=== PATIENT | female | born 1955 | race Caucasian/White ===

== ENCOUNTER 2018-04-01 21:09 | Emergency (ER) | payer OTHER, MEDICAID, SELFPAY ==
[2018-04-01 21:19] VITALS: BP 135/84; PULSE 68; RESP 18; TEMP 36.6; O2SAT 98; BMI 22.2
--- NOTE | 2018-04-01 21:21 | DI.CT.S_ITS ---
PROCEDURE: CT HEAD/BRAIN WO CON INDICATIONS: amnesia, no trauma TECHNIQUE: Noncontrast 4.5 mm thick angled axial sections acquired from the foramen magnum to the vertex, with coronal and sagittal reformats. For radiation dose reduction, the following was used: automated exposure control, adjustment of mA and/or kV according to patient size. COMPARISON: None. FINDINGS: Image quality: Excellent. CSF spaces: Basal cisterns are patent. No extra-axial fluid collections. Ventricles are normal in size and shape. Brain: No midline shift. No intracranial masses or hemorrhage. Diaz-white matter interface is normal. Skull and face: Calvarium and visualized facial bones are intact, without suspicious lesions. Sinuses: Visualized sinuses and mastoids are clear except at the left sphenoid sinus and posterior margin of the left ethmoid air cells where moderate mucosal thickening appears present. IMPRESSION: No trauma found. No acute disease identified. Moderate mucosal thickening is present within the posterior aspect of the left ethmoid air cells and the adjacent left sphenoid sinus. No comparison is available for review to establish chronicity of this finding. By appearance it is most likely chronic. Dictated by: Tom Israel M.D. on 04/01/2018 at 21:56 Approved by: Tom Israel M.D. on 04/01/2018 at 21:58
[2018-04-01 21:32] LABS: Urine Amphetamines Negative (Negative); Urine Barbiturates Negative (Negative); Urine Benzodiazepines Negative (Negative); Urine Cocaine Negative (Negative); Urine MDMA Negative (Negative); Urine Methadone Negative (Negative); Urine Methamphetamines Negative (Negative); Urine Morphine/Opi cutoff 2000 Negative (Negative); Urine Oxycodone Negative (Negative); Urine Phencyclidine Negative (Negative); Urine Tetrahydrocannabinol Negative (Negative); Urine Tricyclic Antidepressant Negative (Negative)
[2018-04-01] MEDS: SODIUM CHLORIDE 0.9% 1,000 ML 1000 ML IV (21:36)
--- NOTE | 2018-04-01 21:45 | ED.NEUROSD ---
HPI - Neuro Symptoms/Deficit General Chief Complaint: Neuro Symptoms/Deficit Stated Complaint: Amnesia Time Seen by Provider: 04/01/18 21:21 Source: patient and EMS Mode of arrival: EMS Limitations: altered mental status History of Present Illness HPI Narrative: Patient is a 62-year-old female who presents with amnesia and repetitive questioning. She was on [place] went to [facility]. She spent in unknown amount of time in the sauna. Her friend found her she was confused. No sign of trauma. She vaguely remembers [place]. EMS reports having the same conversation with her multiple times. No focal deficits she is speaking clearly. She is unsure exactly what happened but she is aware of where she is. I have spoken with her son who states that she has been on a ketogenic diet for the last number of months he is unsure if this is playing a role into it. The patient states that she has temporal lobe epilepsy which she does not take any medication for. She states that she is very vivid memories when she has seizures. She has not had 1 for [place]. On Anticoagulants: No Related Data Home Medications Medication Instructions Recorded Confirmed Koff[place]ien 04/01/18 Allergies Allergy/AdvReac Type Severity Reaction Status Date / Time Sulfa (Sulfonamide Allergy Mild Verified 04/01/18 21:43 Antibiotics) Review of Systems Review of Systems GENERAL: Denies chills, fatigue, malaise, fever, sweats, travel HEENT: Denies sinus pain, ear pain, sore throat, difficulty swallowing, neck pain RESPIRATORY: Denies dyspnea, cough, wheezing, hemoptysis, sputum. CARDIOVASCULAR: Denies chest pain, palpitations, orthopnea, edema GASTROINTESTINAL: Denies nausea, vomiting, abdominal pain, diarrhea, constipation, melena. : Denies dysuria, frequency, incontinence, hematuria, urinary retention, flank pain. MUSCULOSKELETAL: Denies weakness, joint pain, or bony pain SKIN: No rash, no erythema, no pruritus NEUROLOGIC: See HPI PSYCHIATRIC: No concerning psychosocial issues. 12 point review of systems is negative except for those stated above and HPI PFSH Medical History Temporal lobe seizure (Acute) Social History Smoking Status: Never smoker alcohol intake: never substance use type: does not use Exam Initial Vital Signs Initial Vital Signs: Vital Signs Temperature 97.9 F 04/01/18 21:19 Pulse Rate 68 04/01/18 21:19 Respiratory Rate 18 04/01/18 21:19 Blood Pressure 135/84 04/01/18 21:19 Pulse Oximetry 98 04/01/18 21:19 GENERAL: Well-appearing, well-nourished and in no acute distress. Sober positive questioning and words HEENT: Head atraumatic,EOMI, pupils reactive, face symmetric CARDIOVASCULAR: Regular rate and rhythm without murmurs, rubs or gallops. RESPIRATORY: Breath sounds equal bilaterally, no wheezes rales or rhonchi. ABDOMEN: Soft, nontender. Normoactive bowel sounds all 4 quadrants. No guarding or rebound. EXTREMITIES: Normal range of motion, no clubbing or edema. Neurovascularly intact NEUROLOGICAL: Alert and oriented x4.Normal gait and speech. Cranial nerves II through XII grossly intact. Good [id number], good [id number], strength equal bilaterally, no dysarthria or aphasia, sensation in tact to soft touch bilaterally, no visual changes, no facial droop SKIN: Warm, dry, no laceration, no petechiae, no rashes or lesions. Scores NIH Stroke Scale Level of Conciousness: Alert, keenly responsive Ask month/age: Answers both questions correctly. Open/close eyes, close hand: Performs both tasks correctly Best gaze horizontal: Normal Visual gomez: No visual loss Facial palsy: Normal symetrical movement Left arm drift: No drift for full 10 sec Right arm drift: No drift for full 10 sec Left leg drift: No drift for full 10 sec Right leg drift: No drift for full 10 sec Limb ataxia: Absent Sensory on face/arms/legs: Normal, no sensory loss Best language: No aphasia, normal Dysarthria: Normal Extinction or inattention: No abnormality Total NIH Stroke scale score: 0 Course Orders Ordered: Discontinued Medications Sodium Chloride (Normal Saline 0.9%) 1,000 mls @ 1,000 mls/hr IV CONT PHU Last Infusion: 04/02/18 00:26 Dose: 1,000 mls/hr Admin: 04/01/18 21:36 Dose: 1,000 mls/hr Dextrose (Dextrose 5% Water) 1,000 mls @ 150 mls/hr IV CONT PHU Last Admin: 04/02/18 00:28 Dose: Vital Signs - 8 hr 04/01/18 23:02 04/01/18 23:03 04/02/18 00:17 Temperature 98.4 F Pulse Rate 86 84 Respiratory Rate 17 18 Blood Pressure [Left Arm] 120/46 L 127/57 L Pulse Oximetry 100 99 04/02/18 05:27 Temperature Pulse Rate 72 Respiratory Rate 18 Blood Pressure [Left Arm] 112/60 Pulse Oximetry 98 MDM - Neuro Symptoms/Deficit Lab Data Attestation: I reviewed the patient's lab results. Result diagrams: 04/01/18 21:30 04/01/18 21:30 Lab Results 04/01/18 04/01/18 04/01/18 Range/Units 20:40 21:20 21:20 WBC (4.5-11.0) X10^3/uL RBC (4.0-5.2) X10^6/uL Hgb (12.0-16.0) g/dL Hct (36-46) % MCV (80-100) fL MCH (26-34) PG MCHC (30-36) % RDW (11.6-14.8) % Plt Count (150-400) X10^3/uL Neut % (Auto) (50-75) % Lymph % (Auto) (25-40) % [place] % (Auto) (3-14) % Eos % (Auto) (2-4) % Baso % (Auto) (0-2) % Neut # (Auto) (4312-8217) /uL PT (10.1-12.7) SECONDS INR (0.9-1.3) APTT (26.4-36.2) SECONDS Sodium (137-145) mmol/L Potassium (3.4-5.1) mmol/L Chloride (98-107) mmol/L Carbon Dioxide (22-32) mmol/L BUN (7-17) mg/dL Creatinine (0.52-1.04) mg/dL Estimated GFR (>60) mL/min BUN/Creatinine Ratio (6-22) Glucose (80-110) mg/dL Calcium (8.4-10.2) mg/dL Total Bilirubin (0.2-1.3) mg/dL AST (14-36) IU/L ALT (9-52) IU/L Alkaline Phosphatase (38-126) U/L Total Protein (6.3-8.2) g/dL Albumin (3.5-5.0) g/dL Globulin (1.7-4.1) g/dL Albumin/Globulin Ratio (1.0-2.8) Prolactin (3.0-18.6) ng/mL Urine RBC 0-1/hpf (0-5/HPF) Urine WBC None seen (0-5/HPF) Ur Squamous Epith Cells None seen Urine Bacteria None seen (None) Ur Culture Indicated? Cult not indicated Micro UA Comment Not Reportable Salicylates (<20) mg/dL Urine Opiates Screen Cancelled Negative Ur Oxycodone Screen Cancelled Negative Urine Methadone Screen Cancelled Negative Acetaminophen (10-30) ug/mL Ur Barbiturates Screen Cancelled Negative U Tricyclic Antidepress Cancelled Negative Ur Phencyclidine Scrn Cancelled Negative Ur Amphetamines Screen Cancelled Negative U Methamphetamines Scrn Cancelled Negative Ur MDMA Scrn (Ecstasy) Cancelled Negative U Benzodiazepines Scrn Cancelled Negative Urine Cocaine Screen Cancelled Negative U Marijuana (THC) Screen Cancelled Negative Ethyl Alcohol mg/dL Ketones (<0.27) mmol/L 04/01/18 04/01/18 04/01/18 Range/Units 21:23 21:30 21:30 WBC 7.0 (4.5-11.0) X10^3/uL RBC 4.44 (4.0-5.2) X10^6/uL Hgb 14.3 (12.0-16.0) g/dL Hct 41.7 (36-46) % MCV 94.1 (80-100) fL MCH 32.2 (26-34) PG MCHC 34.2 (30-36) % RDW 13.1 (11.6-14.8) % Plt Count 240 (150-400) X10^3/uL Neut % (Auto) 70.6 (50-75) % Lymph % (Auto) 19.5 L (25-40) % [place] % (Auto) 8.2 (3-14) % Eos % (Auto) 1.0 L (2-4) % Baso % (Auto) 0.7 (0-2) % Neut # (Auto) 4900 (3652-0465) /uL PT 10.3 (10.1-12.7) SECONDS INR 0.9 (0.9-1.3) APTT 29 (26.4-36.2) SECONDS Sodium (137-145) mmol/L Potassium (3.4-5.1) mmol/L Chloride (98-107) mmol/L Carbon Dioxide (22-32) mmol/L BUN (7-17) mg/dL Creatinine (0.52-1.04) mg/dL Estimated GFR (>60) mL/min BUN/Creatinine Ratio (6-22) Glucose (80-110) mg/dL Calcium (8.4-10.2) mg/dL Total Bilirubin (0.2-1.3) mg/dL AST (14-36) IU/L ALT (9-52) IU/L Alkaline Phosphatase (38-126) U/L Total Protein (6.3-8.2) g/dL Albumin (3.5-5.0) g/dL Globulin (1.7-4.1) g/dL Albumin/Globulin Ratio (1.0-2.8) Prolactin 32.3 H (3.0-18.6) ng/mL Urine RBC (0-5/HPF) Urine WBC (0-5/HPF) Ur Squamous Epith Cells Urine Bacteria (None) Ur Culture Indicated? Micro UA Comment Salicylates (<20) mg/dL Urine Opiates Screen Ur Oxycodone Screen Urine Methadone Screen Acetaminophen (10-30) ug/mL Ur Barbiturates Screen U Tricyclic Antidepress Ur Phencyclidine Scrn Ur Amphetamines Screen U Methamphetamines Scrn Ur MDMA Scrn (Ecstasy) U Benzodiazepines Scrn Urine Cocaine Screen U Marijuana (THC) Screen Ethyl Alcohol mg/dL Ketones 0.90 H (<0.27) mmol/L 04/01/18 Range/Units 21:30 WBC (4.5-11.0) X10^3/uL RBC (4.0-5.2) X10^6/uL Hgb (12.0-16.0) g/dL Hct (36-46) % MCV (80-100) fL MCH (26-34) PG MCHC (30-36) % RDW (11.6-14.8) % Plt Count (150-400) X10^3/uL Neut % (Auto) (50-75) % Lymph % (Auto) (25-40) % [place] % (Auto) (3-14) % Eos % (Auto) (2-4) % Baso % (Auto) (0-2) % Neut # (Auto) (5993-2736) /uL PT (10.1-12.7) SECONDS INR (0.9-1.3) APTT (26.4-36.2) SECONDS Sodium 141 (137-145) mmol/L Potassium 3.8 (3.4-5.1) mmol/L Chloride 110 H (98-107) mmol/L Carbon Dioxide 19 L (22-32) mmol/L BUN 17 (7-17) mg/dL Creatinine 0.70 (0.52-1.04) mg/dL Estimated GFR > 60.0 (>60) mL/min BUN/Creatinine Ratio 24.3 H (6-22) Glucose 105 (80-110) mg/dL Calcium 9.6 (8.4-10.2) mg/dL Total Bilirubin 0.5 (0.2-1.3) mg/dL AST 39 H (14-36) IU/L ALT 38 (9-52) IU/L Alkaline Phosphatase 66 (38-126) U/L Total Protein 7.4 (6.3-8.2) g/dL Albumin 4.5 (3.5-5.0) g/dL Globulin 2.9 (1.7-4.1) g/dL Albumin/Globulin Ratio 1.6 (1.0-2.8) Prolactin (3.0-18.6) ng/mL Urine RBC (0-5/HPF) Urine WBC (0-5/HPF) Ur Squamous Epith Cells Urine Bacteria (None) Ur Culture Indicated? Micro UA Comment Salicylates < 1.0 (<20) mg/dL Urine Opiates Screen Ur Oxycodone Screen Urine Methadone Screen Acetaminophen < 10 L (10-30) ug/mL Ur Barbiturates Screen U Tricyclic Antidepress Ur Phencyclidine Scrn Ur Amphetamines Screen U Methamphetamines Scrn Ur MDMA Scrn (Ecstasy) U Benzodiazepines Scrn Urine Cocaine Screen U Marijuana (THC) Screen Ethyl Alcohol < 10 mg/dL Ketones (<0.27) mmol/L Point of Care Testing Glucose POC 110 Urine Dip Bedside Urine Glucose Negative Bedside Urine Bilirubin - Negative Bedside Urine Ketone - Negative Urine Specific Perry 1.010 Bedside Urine Occult Blood +/- Bedside Urine pH 7.0 Bedside Urine Protein - Negative Bedside Urine Urobilinogen - Negative Bedside Urine Nitrite - Negative Bedside Urine Leukocytes - Negative Esterase Imaging Data CT scan - head: Radiologist's impression: PROCEDURE: CT HEAD/BRAIN WO CON INDICATIONS: amnesia, no trauma TECHNIQUE: Noncontrast 4.5 mm thick angled axial sections acquired from the foramen magnum to the vertex, with coronal and sagittal reformats. For radiation dose reduction, the following was used: automated exposure control, adjustment of mA and/or kV according to patient size. COMPARISON: None. FINDINGS: Image quality: Excellent. CSF spaces: Basal cisterns are patent. No extra-axial fluid collections. Ventricles are normal in size and shape. Brain: No midline shift. No intracranial masses or hemorrhage. Diaz-white matter interface is normal. Skull and face: Calvarium and visualized facial bones are intact, without suspicious lesions. Sinuses: Visualized sinuses and mastoids are clear except at the left sphenoid sinus and posterior margin of the left ethmoid air cells where moderate mucosal thickening appears present. IMPRESSION: No trauma found. No acute disease identified. Moderate mucosal thickening is present within the posterior aspect of the left ethmoid air cells and the adjacent left sphenoid sinus. No comparison is available for review to establish chronicity of this finding. By appearance it is most likely chronic. Dictated by: Tom Israel M.D. on 04/01/2018 at 21:56 Approved by: Tom Israel M.D. on 04/01/2018 at 21:58 ECG Data Attestation: I personally reviewed and interpreted this ECG as follows: Prior ECG tracings: not available for review Interpretation: Normal sinus rhythm rate [address] changes no T-wave inversions FL interval 141 MDM Narrative Medical decision making narrative: Patient does ask my name on multiple occasions. 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 Does not seem to be as repetitive as when she 1st arrived. Her symptoms do seem to be improving. At this time no indication for hospitalization. Son is aware and will get [place] ferry [place] get her. Discharge Plan Departure Patient Disposition: Home Clinical Impression: TGA (transient global amnesia) Discharge Date/Time: 04/02/18 06:00 Interventions: ED Discharge Assessment Last Done: 04/02/18 06:31 Instructions: DI for Transient Global Amnesia Activity Restrictions/Additional Instructions: *You have been diagnosed with transient global amnesia *What to do: Memory has already started to improve hopefully that will continue. You may require outpatient MRI. *Continue to take medications as directed *Follow up with your primary care provider in 2-3 days *Return to ER if you should have weakness, difficulty speaking, facial droop or any new, worsening or concerning symptoms Prescriptions: No Action Iman RF: 0 Referrals: Gatrh Burgess MD [Non-Staff] -
[2018-04-01 21:50] LABS: Bacteria Urine None Seen; WBC Urine None Seen (0-5/HPF)
[2018-04-01 21:52] LABS: Add Manual Diff / Slide Review NO; Basophils Percent Auto 0.7 % (0-2); Hematocrit 41.7 % (36-46); Hemoglobin 14.3 g/dL (12.0-16.0); Lymphocytes Percent Auto 19.5 % (25-40); Mean Corpuscular HGB Conc 34.2 % (30-36); Mean Corpuscular Hemoglobin 32.2 PG (26-34); Mean Corpuscular Volume 94.1 fL (80-100); Monocytes Percent Auto 8.2 % (3-14); Neutrophils Absolute Auto 4900 /uL (1500-7000); Neutrophils Percent Auto 70.6 % (50-75); Platelet Count 240 X10^3/uL (150-400); Red Blood Cell Count 4.44 X10^6/uL (4.0-5.2); Red Cell Distribution Width 13.1 % (11.6-14.8)
[2018-04-01 21:53] LABS: INR 0.9 (0.9-1.3); Prothrombin Time 10.3 SECONDS (10.1-12.7)
[2018-04-01 21:55] LABS: PTT Partial Thromboplastin Tim 29 SECONDS (26.4-36.2)
[2018-04-01 22:03] LABS: Acetaminophen < 10 ug/mL (10-30); Alanine Aminotransferase 38 IU/L (9-52); Albumin 4.5 g/dL (3.5-5.0); Albumin Globulin Ratio 1.6 (1.0-2.8); Alkaline Phosphatase 66 U/L (38-126); Aspartate Aminotransferase 39 IU/L (14-36); BUN Creatinine Ratio 24.3 (6-22); Bilirubin Total 0.5 mg/dL (0.2-1.3); Blood Urea Nitrogen 17 mg/dL (7-17); Calcium 9.6 mg/dL (8.4-10.2); Carbon Dioxide 19 mmol/L (22-32); Chloride 110 mmol/L (98-107); Estimated Glomerular Filt Rate > 60.0 mL/min (>60); Ethanol (ETOH) < 10 mg/dL; Globulin 2.9 g/dL (1.7-4.1); Glucose 105 mg/dL (80-110); HEMOLYSIS 40 (0-50); Potassium 3.8 mmol/L (3.4-5.1); Sodium 141 mmol/L (137-145); Total Protein 7.4 g/dL (6.3-8.2)
[2018-04-01 22:06] LABS: Salicylate < 1.0 mg/dL (<20)
[2018-04-01 22:10] LABS: Culture Indicated Urine Cult Not Indicated; RBC Urine 0-1/HPF (0-5/HPF); Squamous Epithelial Cell Urine None Seen
[2018-04-01 22:30] VITALS: BP 120/77; PULSE 76; RESP 14; O2SAT 100
[2018-04-01 23:02] VITALS: TEMP 36.9
[2018-04-01 23:03] VITALS: BP 120/46; PULSE 86; RESP 17; O2SAT 100
[2018-04-01 23:21] LABS: Prolactin 32.3 ng/mL (3.0-18.6)
[2018-04-02 00:17] VITALS: BP 127/57; PULSE 84; RESP 18; O2SAT 99
--- NOTE | 2018-04-02 00:19 | PC.NURSE ---
She will stay in room until AM graciekrystyna leaves for [place].I have made her as comfortable as possible,she did not like the gurney so I replaced it with a recliner which she preferred. I have given her 3 pillows and warm blankets.Her call light is in her reach.
[2018-04-02 05:27] VITALS: BP 112/60; PULSE 72; RESP 18; O2SAT 98
--- NOTE | 2018-04-02 05:27 | PC.NURSE ---
She was able to sleep well she said,eating sandwich and juice now.alert and oriented to person,place,date and time.gait steady.feels much better she said.
== END 2018-04-02 06:00 | disposition home or self-care (01) ==
PROVIDERS: Emergency Provider Emergency Medicine
DX: G45.4 Transient global amnesia (principal)
CPT/HCPCS: 36591; 70450; 80053; 80305; 80320; 80329; 81003; 81015; 82009; 82962; 84146; 85025; 85610; 85730; 93005; 96360; 96361; 99284; 99285; 99291; G0480

== ENCOUNTER → 2018-04-11 12:12 | Outpatient (CLI) | payer OTHER, MEDICAID, SELFPAY ==
--- NOTE | 2018-04-11 | DI.MRI.S_ITS ---
PROCEDURE: MR HEAD/BRAIN WO CON INDICATIONS: transient global amnesia TECHNIQUE: Noncontrast axial T1 spin echo, axial T2 fast spin echo, sagittal and axial FLAIR, coronal T2 fast spin echo, axial gradient echo, axial diffusion and ADC through the brain. COMPARISON: [facility], CT, CT HEAD/BRAIN WO CON, 04/01/2018, 21:43. FINDINGS: Image quality: Excellent. CSF Spaces: Basal cisterns are patent. No extra-axial fluid collections. Ventricles are normal in size and shape. Brain: No intracranial masses or hemorrhage. Diaz/white matter interface is normal. Brainstem appears normal. Diffusion-weighted images demonstrate no acute ischemic insult. No chronic ischemic insults. Normal intravascular flow voids are present. Skull and face: Calvarium has normal marrow signal. Orbits appear normal. Sinuses: Mucosal thickening noted in the left sphenoid sinus and the maxillary sinuses bilaterally.. Right maxillary sinus mucus retention cyst versus polyp. The mastoids are clear. IMPRESSION: 1. No intracranial disease process. 2. No abnormal intracranial mass or abnormal intracranial signal. 3. Left sphenoid sinus and bilateral maxillary sinus mucosal thickening. 4. Right maxillary sinus mucus retention cyst versus polyp. Dictated by: Karen Snider MD, PhD on 04/11/2018 at 22:07 Approved by: Karen Snider MD, PhD on 04/11/2018 at 22:10
== END ==
PROVIDERS: Visit Provider Physician Assistant Medical
DX: G45.4 Transient global amnesia (principal); J32.8 Other chronic sinusitis
CPT/HCPCS: 70551

== ENCOUNTER → 2019-04-08 13:15 | Outpatient (CLI) | payer OTHER, MEDICAID, SELFPAY ==
--- NOTE | 2019-04-08 | PATH_ITS ---
Note [facility] Accession Number: [id number] TESTS RESULT FLAG UNITS REF RANGE LAB Clinician Provided Cytology Information No. of containers..01 Other (Miscellaneous) No. of containers..10 Previously Prepared Cytology Slide RIGHT THYROID NODULE DIAGNOSIS: RIGHT THYROID NODULE, FINE NEEDLE ASPIRATION. NEGATIVE FOR MALIGNANT CELLS. ADEQUATE FOR EVALUATION. FOLLICULAR GROUPS ARE PRESENT. FAVOR A BENIGN FOLLICULAR (GOITEROUS) NODULE (BETHESDA CATEGORY II), SEE COMMENT. COMMENT: MICROSCOPIC EXAMINATION REVEALS A MILDLY CELLULAR ASPIRATE, WITH THICK PREPARATION ARTIFACT, COMPOSED OF COLLOID, FOLLICULAR GROUPS WITHOUT SIGNIFICANT CYTOLOGIC ATYPIA, AND BACKGROUND MACROPHAGES. ALTHOUGH THE FINDINGS FAVOR A BENIGN FOLLICULAR (GOITEROUS) NODULE, ACCURATE EVALUATION OF CYTOMORPHOLOGIC FEATURES IS SOMEHOW LIMITED DUE TO THICK PREPARATION OF THE ASPIRATE. CORRELATION WITH CLINICAL AND RADIOGRAPHIC FINDINGS IS RECOMMENDED. ACCORDING TO THE B[place]DA REPORTING SYSTEM FOR THYROID CYTOPATHOLOGY, THE RISK OF MALIGNANCY IN THE CATEGORY BENIGN-CATEGORY II IS 0-3%; THEREFORE RECOMMEND CONTINUED ULTRASOUND SURVEILLANCE WITH REPEAT FNA IF THE NODULE SIGNIFICANTLY INCREASES IN SIZE. Pathologist ICD10: 01 E04.1 THYROID LUMP.. referred for fine needle biopsy last March and was to go to [facility] for thyroid nodules at [facility].... us US tech told her it didn't look like cancer so she never went for testing... lump is still there... if not cancer what else could it be? MALAISE... very tired and blames thyroid...wants testing INSOMNIA...has taken zolpidem and wants to try it again. Actually had some and home and took with good result. Kush Pollard MD, Pathologist NPI- [id number] Garth Montilla, Family Caseworker ([facility]) 01 30 CC, PINK, CLEAR /VDU 04/09/2019 1308 Local FLAG LEGEND: L-Low Normal,H-High Normal,LL-Alert Low,HH-Alert High <-Panic Low,>-Panic High,A-Abnormal,AA-Critical Abnormal Performed at: 01 =Z [facility] [address] [place] [address] [address], [place] [address] Nuno Kemp MD, Performed at: 01 [facility] [address] [place] [address] [address], [place], [place] [id number] MD Nuno Kemp MD Phone: [phone]
--- NOTE | 2019-04-08 | DI.US.S_ITS ---
PROCEDURE: US FINE NEEDLE ASPIRATION INDICATIONS: RIGHT THYROID NODULE TECHNIQUE: The indications, alternatives, benefits, risks, and complications of the procedure were explained to the patient. Written informed consent was obtained and placed in the chart. The thyroid region was examined sonographically and a site was chosen for ultrasound guided percutaneous sampling. The skin was prepared and draped in the usual fashion, and anesthetized with 1% lidocaine infiltrated from the skin down to the thyroid gland. Multiple passes were then performed, with contents emptied into an appropriate pathology specimen container. A bandage was applied to the area of access at completion of the study. COMPARISON: None. FINDINGS: Location(s) of lesion(s) sampled: Right thyroid lobe nodule [place]: 25 gauge hypodermic needles. Number of passes: 6 Medications: 1% lidocaine for local anaesthesia. Complications: None. IMPRESSION: Successful ultrasound-guided thyroid nodule fine needle aspiration, with cytology results pending. Please see chart below for management recommendations based on cytology results. [facility] ReportingRecommendationsNon-diagnostic* Repeat US-guided FNA, with on-site cytology evaluation if possible. * Repeated non-diagnostic nodules without high suspicion US features: close observation vs surgical consult. * Consider surgery if nodule has high suspicion US features, grows >20% in 2 dimensions on followup, or patient has clinical risk factors for malignancy. Benign* If nodule has high suspicion US features: repeat US and FNA within 12 months. * If nodule has low to intermediate suspicion US features: repeat US at 12-24 months. If nodule grows (20% increase in at least 2 dimensions, with minimal increase of 2 mm or >50% change in volume), or development of new suspicious US features, then repeat FNA or continue followup. * If nodule has very low suspicion US features: followup US at >24 months. Atypia of undetermined significance, follicular lesion of undetermined significanceRepeat FNA, molecular testing, followup US, or surgical consult.Follicular neoplasm, suspicious for follicular neoplasmSurgical consult; also consider molecular testing. Suspicious for malignancySurgical consult.MalignantSurgical consult. Dictated by: Marilynn Vaca M.D. on 04/08/2019 at 17:06 Approved by: Marilynn Vaca M.D. on 04/08/2019 at 17:07
== END ==
PROVIDERS: PCP Physician Assistant Medical; Visit Provider Physician Assistant Medical
DX: E04.1 Nontoxic single thyroid nodule (principal)
CPT/HCPCS: 10005

== ENCOUNTER → 2020-07-28 12:04 | Outpatient (CLI) | payer MEDICARE, SELFPAY ==
[2020-07-28 20:27] LABS: Vitamin B12 487 pg/mL (239-931)
[2020-08-02 08:41] LABS: Methylmalonic Acid,Serum 112 nmol/L (0-378)
== END ==
PROVIDERS: PCP Physician Assistant Medical; Visit Provider Psychiatry & Neurology Neurology
DX: E53.8 Deficiency of other specified B group vitamins (principal)
CPT/HCPCS: 82607; 83921

== ENCOUNTER → 2021-06-20 13:16 | Outpatient (CLI) | payer MEDICARE, OTHER, SELFPAY ==
[2021-06-21 18:50] LABS: Add Manual Diff / Slide Review NO; Basophils Absolute Auto 0 /uL (0-100); Basophils Percent Auto 0.6 % (0-2); Eosinophils Absolute Auto 200 /uL (0-450); Eosinophils Percent Auto 4.3 % (2-4); Hematocrit 39.6 % (36-46); Hemoglobin 13.5 g/dL (12.0-16.0); Lymphocytes Absolute Auto 1800 /uL (1100-4500); Lymphocytes Percent Auto 33.4 % (25-40); Mean Corpuscular HGB Conc 34.1 % (30-36); Mean Corpuscular Hemoglobin 32.5 PG (26-34); Mean Corpuscular Volume 95.3 fL (80-100); Monocytes Absolute Auto 600 /uL (0-900); Monocytes Percent Auto 10.8 % (3-14); Neutrophils Absolute Auto 2700 /uL (1500-7000); Neutrophils Percent Auto 50.9 % (50-75); Platelet Count 229 X10^3/uL (150-400); Red Blood Cell Count 4.15 X10^6/uL (4.0-5.2); Red Cell Distribution Width 12.6 % (11.6-14.8); White Blood Cell Count 5.3 X10^3/uL (4.5-11.0)
[2021-06-21 18:55] LABS: HEMOLYSIS < 15 (0-50); Iron 132 ug/dL (37-170)
[2021-06-21 18:57] LABS: Alanine Aminotransferase 35 IU/L (<35); Albumin 4.5 g/dL (3.5-5.0); Albumin Globulin Ratio 1.7 (1.0-2.8); Alkaline Phosphatase 64 U/L (38-126); Aspartate Aminotransferase 40 IU/L (14-36); BUN Creatinine Ratio 19.2 (6-22); Bilirubin Total 0.9 mg/dL (0.2-1.3); Blood Urea Nitrogen 15 mg/dL (7-17); Calcium 9.5 mg/dL (8.4-10.2); Carbon Dioxide 23 mmol/L (22-32); Chloride 106 mmol/L (98-107); Estimated Glomerular Filt Rate > 60.0 mL/min (>60); Globulin 2.6 g/dL (1.7-4.1); Glucose 88 mg/dL (80-110); HEMOLYSIS < 15 (0-50); Potassium 3.7 mmol/L (3.4-5.1); Sodium 138 mmol/L (137-145); Total Protein 7.1 g/dL (6.3-8.2)
[2021-06-21 19:06] LABS: Percent Iron Saturation 46 % (15-50); Total Iron Binding Capacity 290 ug/dL (265-497); Transferrin 230 mg/dL (206-381)
[2021-06-21 19:12] LABS: T4 Total Thyroxine 7.58 ug/dL (5.5-11.0)
[2021-06-21 19:26] LABS: Thyroid Stimulating Hormone 2.08 uIU/mL (0.47-4.68)
[2021-06-21 19:29] LABS: Ferritin 46 ng/mL (11-264)
[2021-06-21 20:01] LABS: Folate 16.4 ng/mL (2.76-20.0); Vitamin B12 798 pg/mL (239-931)
== END ==
PROVIDERS: Nurse Practitioner Family; PCP Physician Assistant Medical
DX: R53.83 Other fatigue (principal); F32.A Depression, unspecified; D64.9 Anemia, unspecified; E55.9 Vitamin D deficiency, unspecified
CPT/HCPCS: 80053; 82306; 82607; 82728; 82746; 83540; 83550; 84436; 84443; 85025

== ENCOUNTER → 2021-11-13 10:18 | Outpatient (CLI) | payer MEDICARE, OTHER, SELFPAY ==
[2021-11-13 20:22] LABS: Prolactin 9.2 ng/mL (3.0-18.6)
[2021-11-13 20:24] LABS: Free T3, Triiodothyronine Free 3.31 pg/mL (2.77-5.27); Free T4, Direct Thyroxine 0.94 ng/dL (0.78-2.19)
[2021-11-13 20:36] LABS: Cortisol AM (Before 10AM) 8.28 ug/dL (4.46-22.7)
[2021-11-13 20:37] LABS: TSH w/ Reflex to FT4 1.44 uIU/mL (0.47-4.68)
[2021-11-13 21:12] LABS: Vitamin B12 469 pg/mL (239-931)
[2021-11-15 04:43] LABS: Adrenocorticotropic Hormone 16.8 pg/mL (7.2-63.3)
[2021-11-15 06:00] LABS: Thyroid Peroxidase Antibodies 15 IU/mL (0-34)
[2021-11-16 04:08] LABS: IGF-1 140 ng/mL (52-196)
[2021-11-16 10:45] LABS: Methylmalonic Acid,Serum 92 nmol/L (0-378)
[2021-11-24 17:47] LABS: Thyroglobulin Level 140 ng/mL (.)
== END ==
PROVIDERS: Psychiatry & Neurology Neurology; PCP Physician Assistant Medical
DX: R53.82 Chronic fatigue, unspecified (principal); R41.3 Other amnesia; R79.89 Other specified abnormal findings of blood chemistry
CPT/HCPCS: 82024; 82533; 82607; 82746; 83921; 84146; 84305; 84432; 84439; 84443; 84481; 86376

== ENCOUNTER → 2022-01-17 13:09 | Outpatient (CLI) | payer MEDICARE, OTHER, SELFPAY ==
[2022-01-19 19:38] LABS: Anti Thyroglobulin Antibody <1.0 IU/mL (0.0-0.9)
[2022-01-23 14:46] LABS: SARS CoV19 IgG <13.0
== END ==
PROVIDERS: PCP Physician Assistant Medical; Visit Provider Nurse Practitioner Family
DX: E04.1 Nontoxic single thyroid nodule (principal); Z20.822 Contact with and (suspected) exposure to COVID-19
CPT/HCPCS: 82542; 86769; 86800

== ENCOUNTER 2023-04-05 09:20 | Emergency (ER) | payer OTHER, MEDICARE, MEDICAID, SELFPAY ==
[2023-04-05] VITALS (8 sets, daily range): BP systolic 110–136; BP diastolic 57–76; PULSE 80–90; RESP 18; TEMP 36.4; O2SAT 93–99; BMI 23.3
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
== END 2023-04-05 11:00 | disposition home or self-care (01) ==
PROVIDERS: Emergency Provider Emergency Medicine; PCP Physician Assistant Medical
DX: S16.1XXA Strain of muscle, fascia and tendon at neck level, initial encounter (principal); V49.88XA Car occupant (driver) (passenger) injured in other specified transport accidents, initial encounter
CPT/HCPCS: 70450; 72125; 99283

== ENCOUNTER → 2023-05-06 08:33 | Outpatient (CLI) | payer MEDICARE, MEDICAID, SELFPAY ==
[2023-05-06 19:52] LABS: Alanine Aminotransferase 36 IU/L (<35); Albumin 4.2 g/dL (3.5-5.0); Albumin Globulin Ratio 1.4 (1.0-2.8); Alkaline Phosphatase 64 U/L (38-126); Aspartate Aminotransferase 34 IU/L (14-36); BUN Creatinine Ratio 27.3 (6-22); Bilirubin Total 0.9 mg/dL (0.2-1.3); Blood Urea Nitrogen 24 mg/dL (7-17); Calcium 9.5 mg/dL (8.4-10.2); Carbon Dioxide 26 mmol/L (22-32); Chloride 104 mmol/L (98-107); Cholesterol 222 mg/dL (140-199); Estimated Glomerular Filt Rate > 60 mL/min (>60); Globulin 2.9 g/dL (1.7-4.1); Glucose 91 mg/dL (80-110); HDL Cholesterol 53 mg/dL (40-60); HEMOLYSIS < 15 (0-50); LDL Cholesterol Calculated 146 mg/dL (<100); Sodium 136 mmol/L (137-145); Total Protein 7.1 g/dL (6.3-8.2); Triglycerides 113 mg/dL (35-150)
[2023-05-06 20:19] LABS: TSH w/ Reflex to FT4 2.44 uIU/mL (0.47-4.68)
[2023-05-06 20:26] LABS: Add Manual Diff / Slide Review NO; Basophils Absolute Auto 0 /uL (0-100); Basophils Percent Auto 0.8 % (0-2); Eosinophils Absolute Auto 200 /uL (0-450); Eosinophils Percent Auto 4.5 % (2-4); Hematocrit 41.6 % (36-46); Hemoglobin 14.3 g/dL (12.0-16.0); Lymphocytes Absolute Auto 1600 /uL (1100-4500); Lymphocytes Percent Auto 32.8 % (25-40); Mean Corpuscular HGB Conc 34.4 % (30-36); Mean Corpuscular Hemoglobin 32.4 PG (26-34); Mean Corpuscular Volume 94.3 fL (80-100); Monocytes Absolute Auto 400 /uL (0-900); Monocytes Percent Auto 8.7 % (3-14); Neutrophils Absolute Auto 2700 /uL (1500-7000); Neutrophils Percent Auto 53.2 % (50-75); Platelet Count 211 X10^3/uL (150-400); Red Blood Cell Count 4.41 X10^6/uL (4.0-5.2); Red Cell Distribution Width 13.7 % (11.6-14.8)
== END ==
PROVIDERS: PCP Physician Assistant Medical; Visit Provider Physician Assistant Medical
DX: Z12.11 Encounter for screening for malignant neoplasm of colon (principal); Z11.2 Encounter for screening for other bacterial diseases; R73.9 Hyperglycemia, unspecified
CPT/HCPCS: 80053; 80061; 84443; 85025

== ENCOUNTER → 2023-06-02 09:35 | Outpatient (CLI) | payer MEDICARE, MEDICAID, SELFPAY ==
--- NOTE | 2023-06-02 09:38 | DI.US.S_ITS ---
PROCEDURE: US THYROID INDICATIONS: nodule. This nodule previously underwent FNA at a different institution on 04/08/2019, which apparently resulted in a benign diagnosis. TECHNIQUE: Real-time scanning was performed of the thyroid gland, with image documentation. COMPARISON: Outside Facility, RG, US THYROID, 05/06/2018, 13:00. FINDINGS: Thyroid: Right lobe measures 6.1 x 3.7 x 2.7 cm. Left lobe measures 3.9 x 3.1 x 1.0 cm. Isthmus is 0.2 cm thick. Echotexture is heterogeneous. Nodule number: 1 Location: Left middle pole Size: 0.5 x 0.4 x 0.2 cm, previously 0.5 x 0.4 x 0.2 cm. Composition: Solid Echogenicity: Hypoechoic Shape: wider than tall. Margins: Smooth Echogenic foci: Punctate Total points: 7 ACR TI-RADS category: 5 Nodule number: 2 Location: Posterior right middle pole Size: 0.8 x 0.8 x 0.6 cm, previously 0.8 x 0.7 x 0.6 cm. Composition: Solid Echogenicity: Isoechoic Shape: wider than tall. Margins: Lobulated Echogenic foci: None Total points: 5 ACR TI-RADS category: 4 Nodule number: 3 Location: Right middle/lower pole Size: 4.5 x 3.5 x 2.5 cm, previously 2.5 x 1.8 x 1.5 cm. Composition: Solid Echogenicity: Isoechoic Shape: wider than tall. Margins: Lobulated Echogenic foci: None Total points: 5 ACR TI-RADS category: 4 IMPRESSION: Significant interval increase in the size of a very large right thyroid nodule. It has imaging characteristics that are moderately suspicious for malignancy. Apparently, it has been previously sampled with a benign diagnosis given. However, due to significant interval growth, would recommend re-sampling under ultrasound guidance for tissue diagnosis. ACR TI-RADS definitions and recommendations: TI-RADS 1 (benign): 0 points. FNA not needed. TI-RADS 2 (not suspicious): 2 points. FNA not needed. TI-RADS 3 (mildly suspicious): 3 points. * FNA if 2.5 cm or larger, follow up if 1.5 cm or larger (at 1, 3, and 5 years). TI-RADS 4 (moderately suspicious): 4-6 points. * FNA if 1.5 cm or larger, follow up if 1 cm or larger (at 1, 2, 3, and 5 years). TI-RADS 5 (highly suspicious): 7 points or more. * FNA if 1 cm or larger, follow up if 0.5 cm or larger (every year for 5 years). Dictated by: Garrick Nixon M.D. on 06/02/2023 at 12:32 Approved by: Garrick Nixon M.D. on 06/02/2023 at 12:41
--- NOTE | 2023-06-02 09:38 | DI.RAD.S_ITS ---
Bone Density Report Name: SARAI RUGGIERO Age: 67 Sex: Female Ethnicity: White Date of : 1955 Indication: postmenopausal; screening for osteoporosis; Referring Provider: KILLIAN ALBERTO Study: Bone densitometry was performed. Exam Date: June 02, 2023 Accession number: [id number] Bone Density: Region BMD T-score Z-score Classification AP Spine(L1-L4) 0.831 -2.0 0.1 Osteopenia Femoral Neck (Left) 0.648 -1.8 -0.1 Osteopenia Total Hip (Left) 0.745 -1.6 -0.2 Osteopenia Femoral Neck (Right) 0.611 -2.1 -0.4 Osteopenia Total Hip (Right) 0.661 -2.3 -0.9 Osteopenia Total Hip Mean 0.703 -2.0 -0.6 Osteopenia World Health Organization criteria for BMD impression classify patients as: Normal (T-score at or above -1.0), Osteopenia (T-score between -1.0 and -2.5), or Osteoporosis (T-score at or below -2.5). 10-year Fracture Risk(1): Major Osteoporotic Fracture 12% Hip Fracture 2.4% Reported Risk Factors: [place] (), Neck BMD=0.611, BMI=24.2 (1) FRAX(R) Version 3.08. Fracture probability calculated for an untreated patient. Fracture probability may be lower if the patient has received treatment. Impression: The patient has low bone mass, based on the Right Total Hip T-score. The patient has an estimated ten-year risk of hip fracture of 2.4% and an estimated ten-year risk of major fracture of 12%, based on the WHO FRAX algorithm. Discussion: BONE DENSITY IS LOW AT ONE OR MORE SKELETAL SITES. This patient's lowest T-score is low at one or more skeletal sites. It meets the World Health Organization's (WHO) criteria for low bone mass (T-score between -1.0 and -2.5). The patient's 10-year risk of fracture as calculated by FRAX is less than the threshold where pharmacological therapy is recommended by the National Osteoporosis Foundation (NOF). However, all treatment decisions require clinical judgment and consideration of individual patient factors, including patient preferences, comorbidities, previous drug use, risk factors not captured in the FRAX model (e.g., frailty, falls, vitamin D deficiency, increased bone turnover, interval significant decline in bone density) and possible under or overestimation of fracture risk by FRAX. The patient should follow a healthful lifestyle (good nutrition with adequate calcium and vitamin D, and appropriate weight-bearing exercise). Follow-Up: Consider repeating this study in 2 to 3 years to reassess this patient's status, or sooner if there is some new clinical indication. Reported by: NILDA GALLARDO M.D. on 06/02/2023 10:32:00 AM.
--- NOTE | 2023-06-02 09:38 | DI.US.S_ITS ---
PROCEDURE: US ABDOMEN LIMITED INDICATIONS: ELEVATED LIVER FUNCTION TESTS TECHNIQUE: Real-time focused scanning was performed of the abdomen, with image documentation. COMPARISON: [facility], CT, IVP (ABD & PEL WWO CONTRAST), 06/27/2014, 10:58. FINDINGS: The liver is normal in size and demonstrates overall normal echotexture. Within the right liver anterior to the jessie hepatis, there is a hyperechoic nonvascular lesion that measures 2.6 x 1.7 x 1.7 cm. Areas of shadowing calcification can be seen within the right liver, which have been previously seen. Within the neck of the gallbladder, there are 2 stones that measure up to 8 mm each that do not move and do not appear to be obstructing. The gallbladder wall is not thickened, measuring 3 mm or less. No specific pericholecystic fluid is seen. The sonographic Robbins sign is negative. There is no biliary dilatation, the common bile duct measures 3-4 mm. No significant pancreatic abnormality is seen on these images. IMPRESSION: Normal overall liver echotexture, without a suspicious lesion seen. There is a focal area of hyperechogenicity seen, which may be related to a hemangioma or focal fatty infiltration seen anterior to the jessie hepatis. Gallstones are seen, yet without additional sonographic signs of cholecystitis. Negative for biliary dilatation. Please correlate with physical examination findings, patient presentation, and laboratory values. Additional findings: Right liver calcification, which is noted from prior imaging Dictated by: Lee Fournier M.D. on 06/02/2023 at 16:34 Approved by: Lee Fournier M.D. on 06/02/2023 at 16:37
== END ==
PROVIDERS: PCP Physician Assistant Medical; Referring Provider Physician Assistant Medical; Visit Provider Physician Assistant Medical
DX: M81.0 Age-related osteoporosis without current pathological fracture (principal); M40.204 Unspecified kyphosis, thoracic region; R79.89 Other specified abnormal findings of blood chemistry; E04.2 Nontoxic multinodular goiter; K80.20 Calculus of gallbladder without cholecystitis without obstruction; K76.9 Liver disease, unspecified
CPT/HCPCS: 76536; 76705; 77080

== ENCOUNTER → 2023-06-10 11:34 | Outpatient (CLI) | payer MEDICARE, SELFPAY ==
[2023-06-10 19:22] LABS: INR 0.9 (0.9-1.3); Prothrombin Time 10.1 SECONDS (9.4-12.5)
[2023-06-10 19:45] LABS: HEMOLYSIS < 15 (0-50); Iron 102 ug/dL (37-170)
[2023-06-10 19:48] LABS: Erythrocyte Sedimentation Rate 8 MM/HR (0-20)
[2023-06-10 19:49] LABS: Alanine Aminotransferase 43 IU/L (<35); Albumin 4.3 g/dL (3.5-5.0); Albumin Globulin Ratio 1.5 (1.0-2.8); Alkaline Phosphatase 75 U/L (38-126); Aspartate Aminotransferase 37 IU/L (14-36); Bilirubin Total 0.7 mg/dL (0.2-1.3); Bilirubin Unconjugated 0.4 mg/dL (0.0-1.1); C-Reactive Protein Quant < 0.5 mg/dL (<1.0); Globulin 2.9 g/dL (1.7-4.1); HEMOLYSIS < 15 (0-50); Total Protein 7.2 g/dL (6.3-8.2)
[2023-06-10 20:01] LABS: Percent Iron Saturation 33 % (15-50); Total Iron Binding Capacity 310 ug/dL (265-497); Transferrin 264 mg/dL (206-381)
[2023-06-10 20:21] LABS: Ferritin 46 ng/mL (11-264)
[2023-06-10 20:54] LABS: Folate 11.7 ng/mL (2.76-20.0); Vitamin B12 Reflex MMA if <400 454 pg/mL (239-931)
[2023-06-12 19:59] LABS: Hep C Virus Ab w/Reflex Quant NEGATIVE s/c (NEGATIVE); Hepatitis B Surface Antigen NEGATIVE s/c (NEGATIVE)
[2023-06-13 00:10] LABS: Hepatitis B Core Antibody Negative (Negative)
[2023-06-13 20:15] LABS: Free Kappa Lt Chains, Serum 13.2 mg/L (3.3-19.4); Free Lambda Lt Chains,Serum 10.9 mg/L (5.7-26.3)
[2023-06-14 08:11] LABS: Hepatitis B Surf Ab Qualitativ Non Reactive (.)
[2023-06-16 12:52] LABS: Albumin 3.8 g/dL (2.9-4.4); Alpha-1-Globulin 0.2 g/dL (0.0-0.4); Alpha-2-Globulin 0.6 g/dL (0.4-1.0); Gamma Globulin 0.8 g/dL (0.4-1.8); Globulin Total 2.6 g/dL (2.2-3.9); Protein, Total 6.4 g/dL (6.0-8.5)
[2023-06-17 20:35] LABS: ANA Screen, IFA Negative (.)
== END ==
PROVIDERS: PCP Physician Assistant Medical; Visit Provider Family Medicine
DX: R41.3 Other amnesia (principal); E04.1 Nontoxic single thyroid nodule; R79.89 Other specified abnormal findings of blood chemistry; K75.9 Inflammatory liver disease, unspecified; G62.9 Polyneuropathy, unspecified
CPT/HCPCS: 80076; 82607; 82728; 82746; 83540; 83550; 83883; 84155; 84165; 85610; 85651; 86038; 86140; 86704; 86706; 86803; 87340

== ENCOUNTER → 2023-06-24 10:53 | Outpatient (CLI) | payer MEDICARE, SELFPAY | PROVIDERS: PCP Family Medicine; Visit Provider Family Medicine | DX: R31.9 Hematuria, unspecified (principal) | CPT/HCPCS: 87086 ==

== ENCOUNTER → 2023-09-11 09:18 | Outpatient (CLI) | payer MEDICARE, MEDICAID, SELFPAY | PROVIDERS: PCP Family Medicine; Visit Provider Physician Assistant Medical | DX: R31.9 Hematuria, unspecified (principal); R10.9 Unspecified abdominal pain | CPT/HCPCS: 87086 ==

== ENCOUNTER → 2023-09-13 12:08 | Outpatient (CLI) | payer MEDICARE, MEDICAID, SELFPAY ==
--- NOTE | 2023-09-13 12:10 | DI.CT.S_ITS ---
PROCEDURE: CT KIDNEY URETER BLADDER (KUB) INDICATIONS: hematuria, right flank pain TECHNIQUE: Axial sections were acquired from the lung bases to the pubic symphysis. Coronal and sagittal reformats were performed. For radiation dose reduction, the following was used: automated exposure control, adjustment of mA and/or kV according to patient size. COMPARISON: None. FINDINGS: Image quality: Diagnostic Lower chest: 5 mm nodule in the right costophrenic angle. No pleural effusions. Annular calcifications of the heart partially seen. Small Bochdalek's hernia on the right Liver: Solid organs not well assessed without IV contrast. No contour deforming mass. Subcentimeter lesions are too small to characterize, usually cysts Gallbladder and biliary system: Cholelithiasis. Nondilated biliary tree Pancreas: No ductal dilation Spleen: Nonenlarged Adrenals: No discrete nodule Kidneys: No contour deforming mass. Left parapelvic cysts. [id number] right pelvocaliectasis and peripelvic fat stranding. In the right renal pelvis, there is a 10 x 7 x 9 mm calcified stone measuring over 700 Hounsfield units. The distal and mid ureter are nondilated. Vessels and lymph nodes: No abdominal aortic aneurysm or pathologic lymph nodes by size criteria. Bowel and peritoneum: No evidence of small bowel obstruction. No pathologic ascites. Body wall: Unremarkable Pelvis: Possible evidence of pelvic descent. Reproductive organs are not well evaluated on CT, overall unremarkable. No calcified bladder stones Bones: No acute or suspicious osseous finding. There are degenerative changes. IMPRESSION: Hevl-[id number] right pelvocaliectasis. 9 x 10 mm right renal pelvis obstructing stone. There is surrounding peripelvic fat stranding. Correlate urinalysis for any superimposed infection. No obstructing stones in the left kidney. Suspected parapelvic cysts are present. In the setting of hematuria, consider additional follow-up with CT IVP and cystoscopy if indicated 5 mm right pulmonary costophrenic angle incidental nodule. Consider optional follow-up in 1 year depending on clinical risk factors for malignancy. Other findings as above. Dictated by: Blayne Marinelli M.D. on 09/14/2023 at 7:59 Approved by: Blayne Marinelli M.D. on 09/14/2023 at 8:05
== END ==
PROVIDERS: PCP Family Medicine; Referring Provider Family Medicine; Visit Provider Family Medicine
DX: N28.89 Other specified disorders of kidney and ureter (principal); N20.0 Calculus of kidney; R31.9 Hematuria, unspecified; R91.1 Solitary pulmonary nodule; K80.20 Calculus of gallbladder without cholecystitis without obstruction
CPT/HCPCS: 74176

== ENCOUNTER → 2023-09-18 13:02 | Outpatient (CLI) | payer MEDICARE, MEDICAID, SELFPAY | PROVIDERS: PCP Family Medicine; Visit Provider Family Medicine | DX: R39.89 Other symptoms and signs involving the genitourinary system (principal) | CPT/HCPCS: 87086 ==

== ENCOUNTER → 2023-10-09 10:41 | Outpatient (CLI) | payer MEDICARE, MEDICAID, SELFPAY ==
[2023-10-10 01:55] LABS: Microalbumin Urine Random 28.7 mg/dL (0-1.6)
== END ==
PROVIDERS: PCP Family Medicine; Visit Provider Physician Assistant Medical
DX: M85.80 Other specified disorders of bone density and structure, unspecified site (principal); R73.9 Hyperglycemia, unspecified; E87.1 Hypo-osmolality and hyponatremia; R79.9 Abnormal finding of blood chemistry, unspecified
CPT/HCPCS: 82043; 82570

== ENCOUNTER → 2023-11-13 11:26 | Outpatient (CLI) | payer MEDICARE, MEDICAID, SELFPAY ==
[2023-11-13 20:31] LABS: Estimated Glomerular Filt Rate > 60 mL/min (>60)
== END ==
PROVIDERS: PCP Family Medicine; Referring Provider Radiology Diagnostic Radiology; Visit Provider Radiology Diagnostic Radiology
DX: R94.01 Abnormal electroencephalogram [EEG] (principal)
CPT/HCPCS: 82565

== ENCOUNTER → 2023-11-22 12:51 | Outpatient (CLI) | payer MEDICARE, MEDICAID, SELFPAY ==
--- NOTE | 2023-11-22 12:53 | DI.CT.S_ITS ---
PROCEDURE: CT IVP A/P W/WO INDICATIONS: RENAL STONE / HX OF HEMATURIA TECHNIQUE: Optional 5 mm thick noncontrast images acquired from the diaphragm to the symphysis pubis. After the administration of intravenous contrast, 5 mm thick images acquired from the diaphragm to the symphysis pubis after a 10-minute delay. 2 mm thick coronal and sagittal reformats were then performed of the kidneys and ureters. For radiation dose reduction, the following was used: automated exposure control, adjustment of mA and/or kV according to patient size. COMPARISON: [facility], CT, CT KIDNEY URETER BLADDER (KUB), 09/13/2023, 12:26. FINDINGS: Image quality: Diagnostic. Kidneys and Ureters: Kidneys are normal in size. Mild right hydronephrosis, slightly increased. Obstructing calculus at the right UVJ measuring 1.1 x 0.4 cm, (3/34). Mild perinephric stranding. Trace fluid. No additional kidney stones. There is normal bilateral renal enhancement. Renal calyces appear normal in morphology when filled with contrast. No solid renal mass. Left peripelvic cysts. Opacified portions of both ureters demonstrate normal caliber. No upper urinary tract filling defect. The distal left ureter is suboptimally opacified. Bladder: Bladder wall thickness is normal. Bladder descent. No calcified bladder stones. OTHER: Lower chest: Unremarkable. Liver: No solid mass. Gallbladder: Small gallstones. Biliary ducts: No biliary dilation. Pancreas: No ductal dilation. Spleen: Size is within normal limits. Adrenal Glands: No adrenal nodules. Stomach and Bowel: Normal colonic caliber, without significant wall thickening. Normal appendix. Peritoneum: No abnormal intraperitoneal fluid. No free air. Ventral Wall: No hernia. Abdominal Nodes: No retroperitoneal or mesenteric adenopathy by size criteria. Vessels: Aorta and inferior vena cava are normal in size. PELVIS: Pelvic Organs: Unremarkable. Pelvic Nodes: No enlarged lymph nodes. Miscellaneous: No inguinal hernias are seen. Bones: No aggressive osseous abnormality. Lucency at the right acetabulum is unchanged. IMPRESSION: 1. Mild right hydronephrosis which is slightly increased. There is trace right perinephric stranding and fluid. There is a stone at the right UVJ measuring 1.1 x 0.4 cm which is in a similar location. Findings consistent with mild obstruction. 2. No additional kidney stones. No solid renal mass. No upper urinary tract filling defect. 3. Gallstones. Dictated by: Wenceslao Cheung M.D. on 11/23/2023 at 18:23 Approved by: Wenceslao Cheung M.D. on 11/23/2023 at 18:41
== END ==
LOC: CT 12:52
PROVIDERS: PCP Family Medicine; Referring Provider Urology; Visit Provider Urology
DX: N13.2 Hydronephrosis with renal and ureteral calculous obstruction (principal); K80.20 Calculus of gallbladder without cholecystitis without obstruction; Z87.448 Personal history of other diseases of urinary system
CPT/HCPCS: 74178; Q9967

== ENCOUNTER → 2023-12-25 13:24 | Outpatient (CLI) | payer MEDICARE, MEDICAID, SELFPAY ==
[2023-12-25 19:45] LABS: Add Manual Diff / Slide Review NO; Basophils Absolute Auto 100 /uL (0-100); Basophils Percent Auto 0.9 % (0-2); Eosinophils Absolute Auto 200 /uL (0-450); Hematocrit 41.6 % (36-46); Hemoglobin 14.3 g/dL (12.0-16.0); Lymphocytes Absolute Auto 2100 /uL (1100-4500); Lymphocytes Percent Auto 32.5 % (25-40); Mean Corpuscular HGB Conc 34.3 % (30-36); Mean Corpuscular Hemoglobin 32.1 PG (26-34); Mean Corpuscular Volume 93.7 fL (80-100); Monocytes Absolute Auto 500 /uL (0-900); Monocytes Percent Auto 7.3 % (3-14); Neutrophils Absolute Auto 3600 /uL (1500-7000); Neutrophils Percent Auto 56.3 % (50-75); Platelet Count 244 X10^3/uL (150-400); Red Blood Cell Count 4.44 X10^6/uL (4.0-5.2); White Blood Cell Count 6.3 X10^3/uL (4.5-11.0)
[2023-12-25 20:02] LABS: Alanine Aminotransferase 25 IU/L (<35); Albumin Globulin Ratio 1.4 (1.0-2.8); Alkaline Phosphatase 61 U/L (38-126); Aspartate Aminotransferase 30 IU/L (14-36); BUN Creatinine Ratio 25.3 (6-22); Bilirubin Total 0.6 mg/dL (0.2-1.3); Blood Urea Nitrogen 22 mg/dL (7-17); Calcium 9.4 mg/dL (8.4-10.2); Carbon Dioxide 27 mmol/L (22-32); Chloride 105 mmol/L (98-107); Estimated Glomerular Filt Rate > 60 mL/min (>60); Globulin 2.8 g/dL (1.7-4.1); Glucose 103 mg/dL (80-110); HEMOLYSIS < 15 (0-50); Potassium 4.2 mmol/L (3.4-5.1); Sodium 137 mmol/L (137-145); Total Protein 6.8 g/dL (6.3-8.2)
[2023-12-28 07:08] LABS: Calcium 9.4 mg/dL (8.7-10.3); Parathyroid Hormone, Intact 37 pg/mL (15-65)
== END ==
PROVIDERS: PCP Family Medicine; Visit Provider Physician Assistant Medical
DX: M85.80 Other specified disorders of bone density and structure, unspecified site (principal); R73.9 Hyperglycemia, unspecified; E87.1 Hypo-osmolality and hyponatremia; R79.9 Abnormal finding of blood chemistry, unspecified; K80.20 Calculus of gallbladder without cholecystitis without obstruction; N20.0 Calculus of kidney
CPT/HCPCS: 80053; 82310; 83970; 85025

== ENCOUNTER → 2024-01-22 14:55 | Outpatient (CLI) | payer MEDICARE, MEDICAID, SELFPAY ==
[2024-01-22 20:28] LABS: Appearance Urine UA CLEAR; Bilirubin Urine UA NEGATIVE (NEGATIVE); Color Urine UA YELLOW; Glucose Urine UA NEGATIVE (Negative); Ketones Urine UA NEGATIVE (NEGATIVE); Leukocyte Esterase Urine UA NEGATIVE (NEGATIVE); Nitrite Urine UA NEGATIVE (Negative); Occult Blood Urine UA 3+ (Negative); Protein Urine UA 2+ (Negative); Specific Gravity Urine UA >=1.030 (1.000-1.035); Urobilinogen Urine UA 0.2 E.U./dL (0.2)
[2024-01-22 20:41] LABS: RBC Urine 10-30/HPF (0-5/HPF); Urine Volume 10mL (spun)
[2024-01-22 20:42] LABS: Amorphous Sediment Urine 1+; Bacteria Urine Occasional (0-1); Culture Indicated Urine Specimen Cultured; Mucus Urine 1+ (Negative); Squamous Epithelial Cell Urine 0-1 /HPF (0-5/HPF); WBC Urine 5-10/HPF (0-5/HPF)
== END ==
PROVIDERS: PCP Family Medicine; Visit Provider Nurse Practitioner
DX: N20.0 Calculus of kidney (principal)
CPT/HCPCS: 81001; 87086

== ENCOUNTER → 2024-04-15 11:28 | Outpatient (CLI) | payer MEDICARE, MEDICAID, SELFPAY ==
--- NOTE | 2024-04-15 11:32 | DI.RAD.S_ITS ---
PROCEDURE: XR ABDOMEN 1V INDICATIONS: ABD PAIN TECHNIQUE: One view of the abdomen acquired. COMPARISON: None. FINDINGS: Surgical changes and devices: None. Bowel: Bowel gas pattern is nonobstructive. Moderate fecal stasis in the colon is seen extending to sigmoid colon and rectum. No gross free air. Soft tissues: No suspicious abdominal calcifications. Visualized solid organ contours appear normal in size. Bones: No suspicious bony lesions. IMPRESSION: Moderate constipation. No bowel obstruction or gross free air. No abnormal abdominal calcifications. Dictated by: Wilfrid Reyes M.D. on 04/15/2024 at 14:19 Approved by: Wilfrid Reyes M.D. on 04/15/2024 at 14:20
--- NOTE | 2024-04-15 11:33 | DI.US.S_ITS ---
PROCEDURE: US RENAL COMPLETE INDICATIONS: Calculus of kidney TECHNIQUE: Real-time scanning was performed of the kidneys and bladder, with image documentation. COMPARISON: US, US ABDOMEN LIMITED, 06/02/2023, 10:06. [facility], CT, CT IVP A/P W/WO, 11/22/2023, 12:59. FINDINGS: Kidneys: Kidneys are normal in size. Right kidney measures 9.1 cm long; left kidney measures 10.3 cm long. Right renal cortical thickness is 1.1 cm; left renal cortical thickness is 1.1 cm. Renal cortical echotexture is normal. There is mild prominence of the right lower pole collecting system. No left-sided hydronephrosis. Several simple parapelvic cysts in the left kidney. No visible stones in either kidney. The ureters were not visible. No suspicious solid mass lesions. Normal color Doppler flow in each kidney. Bladder: Pre-void bladder volume is 82 mL. Post-void residual is one mL. Pre-void images demonstrate no intraluminal masses or stones. On pre-void images, neither ureteral jets are noted with color Doppler interrogation. (Of note, ureteral jets may not be detectable in up to 25% of cases due to insufficient differences in specific gravity between ureteral and bladder urine). Miscellaneous: No free pelvic fluid. Homogeneously hyperechoic liver lesion in the jessie hepatis measures about 2.5 x 1.7 cm. There are shadowing stones in the gallbladder IMPRESSION: No intrarenal calculi visible. Mild residual lower pole right hydronephrosis versus physiologic prominence of calyx. This has improved slightly compared to the prior CT exam. No significant postvoid residual in the urinary bladder. Cholelithiasis. Echogenic area of the liver, most likely hemangioma, present previously. Dictated by: Afsaneh Santiago M.D. on 04/15/2024 at 16:06 Approved by: Afsaneh Santiago M.D. on 04/15/2024 at 16:15
== END ==
PROVIDERS: PCP Family Medicine; Referring Provider Physician Assistant Surgical; Visit Provider Physician Assistant Surgical
DX: K59.00 Constipation, unspecified (principal); N20.0 Calculus of kidney
CPT/HCPCS: 74018; 76770

== ENCOUNTER → 2024-06-03 14:50 | Outpatient (CLI) | payer MEDICARE, MEDICAID, SELFPAY ==
--- NOTE | 2024-06-03 14:53 | DI.NM.S_ITS ---
PROCEDURE: NM EXERCISE TREADMILL NON NUC COMPARISON: None. INDICATIONS: chest pain at rest, atypical, never with exercise FINDINGS: Patient exercised per the standard Jose Antonio protocol. Total exercise time was 6 minutes and 14 seconds. Test was terminated secondary to fatigue. Maximal heart rate obtained is 165 bpm which is 109% of maximum predicted heart rate. Maximum blood pressure was 186/[place] [address]. ZORAIDA -5%. 7.0 METS. No ischemic changes noted. No arrhythmias present. No chest pains voiced. Normal heart rate and blood pressure response to exercise. IMPRESSION: 1. Negative exercise treadmill stress test for ischemia. 2. Average exercise tolerance. Dictated by: Hugo Reyes M.D. on 06/03/2024 at 16:39 Approved by: Hugo Reyes M.D. on 06/03/2024 at 16:40
== END ==
PROVIDERS: PCP Family Medicine; Referring Provider Family Medicine; Visit Provider Family Medicine
DX: R07.89 Other chest pain (principal)
CPT/HCPCS: 93017

== ENCOUNTER → 2024-06-09 16:22 | Outpatient (CLI) | payer MEDICARE, MEDICAID, SELFPAY ==
--- NOTE | 2024-06-09 16:26 | DI.US.S_ITS ---
PROCEDURE: US RENAL COMPLETE INDICATIONS: NEPHROLITHIASIS,HYDRONEPHROSIS TECHNIQUE: Real-time scanning was performed of the kidneys and bladder, with image documentation. COMPARISON: [facility], CT, CT IVP A/P W/WO, 11/22/2023, 12:59. [facility], US, US RENAL COMPLETE, 04/15/2024, 11:59. FINDINGS: Kidneys: Kidneys are normal in size. Right kidney measures 8.7 cm long; left kidney measures 10.6 cm long. Right renal cortical thickness is 1.6 cm; left renal cortical thickness is 1.6 cm. Renal cortical echotexture is normal. No hydronephrosis or conspicuous nephrolithiasis. No suspicious solid mass lesions. Bladder: Pre-void bladder volume is 21 mL. Post-void residual is 0 mL. Pre-void images demonstrate no intraluminal masses or stones. Ureteral jets are not seen. Miscellaneous: No free pelvic fluid. IMPRESSION: No hydronephrosis. Dictated by: Wenceslao Cheung M.D. on 06/10/2024 at 16:53 Approved by: Wenceslao Cheung M.D. on 06/10/2024 at 16:56
== END ==
LOC: US 16:23
PROVIDERS: PCP Family Medicine; Referring Provider Nurse Practitioner; Visit Provider Nurse Practitioner
DX: N20.0 Calculus of kidney (principal); N13.30 Unspecified hydronephrosis
CPT/HCPCS: 76770

== ENCOUNTER → 2024-06-17 13:46 | Outpatient (CLI) | payer MEDICARE, MEDICAID, SELFPAY ==
[2024-06-17 19:26] LABS: TSH w/ Reflex to FT4 2.74 uIU/mL (0.47-4.68)
[2024-06-17 20:02] LABS: Folate 7.5 ng/mL (2.76-20.0); Vitamin B12 485 pg/mL (239-931)
[2024-06-19 07:09] LABS: Thyroid Peroxidase Antibodies 17 IU/mL (0-34)
[2024-06-20 23:07] LABS: Deamidated Gliadin Ab IgA 4 units (0-19); Deamidated Gliadin Ab IgG 1 units (0-19); Immunoglobulin A,Qn 184 mg/dL (87-352); t-Transglutaminase IgA 3 U/mL (0-3)
== END ==
PROVIDERS: PCP Family Medicine; Visit Provider Psychiatry & Neurology Neurology
DX: R26.89 Other abnormalities of gait and mobility (principal); R26.0 Ataxic gait
CPT/HCPCS: 82607; 82746; 82784; 83516; 84443; 86376

== ENCOUNTER → 2024-07-08 13:57 | Outpatient (CLI) | payer MEDICARE, MEDICAID, SELFPAY ==
--- NOTE | 2024-07-08 13:59 | DI.US.S_ITS ---
PROCEDURE: US THYROID INDICATIONS: thyroid nodule TECHNIQUE: Real-time scanning was performed of the thyroid gland, with image documentation. COMPARISON: [facility], [place], US THYROID, 06/02/2023, 9:55. FINDINGS: Thyroid: Right lobe measures 5.2 x 2.8 x 3.6 cm. Left lobe measures 3.3 x 0.8 x 0.9 cm. Isthmus is 0.2 cm thick. Echotexture is heterogeneous. Nodule number: 1 Location: Right mid/inferior Size: 4.9 x 2.8 x 3.8 cm, previously 4.5 x 3.5 x 2.5 cm. Composition: Solid Echogenicity: Isoechoic Shape: wider than tall. Margins: Smooth Echogenic foci: None Total points: 3 ACR TI-RADS category: 3, mildly suspicious Additional subcentimeter nodules are noted and similar to prior. IMPRESSION: Thyroid nodules as described above. Largest nodule was previously biopsied with benign results. Recommend continued sonographic follow-up based on below criteria. ACR TI-RADS definitions and recommendations: TI-RADS 1 (benign): 0 points. FNA not needed. TI-RADS 2 (not suspicious): 2 points. FNA not needed. TI-RADS 3: 3 points. * FNA if 2.5 cm or larger, follow up if 1.5 cm or larger (at 1, 3, and 5 years). TI-RADS 4: 4-6 points. * FNA if 1.5 cm or larger, follow up if 1 cm or larger (at 1, 2, 3, and 5 years). TI-RADS 5: 7 points or more. * FNA if 1 cm or larger, follow up if 0.5 cm or larger (every year for 5 years). Dictated by: Hemanth Disla M.D. on 07/08/2024 at 15:46 Approved by: Hemanth Dsila M.D. on 07/08/2024 at 15:49
== END ==
PROVIDERS: PCP Family Medicine; Referring Provider Student in an Organized Health Care Education/Training Program; Visit Provider Student in an Organized Health Care Education/Training Program
DX: E04.1 Nontoxic single thyroid nodule (principal)
CPT/HCPCS: 76536

== ENCOUNTER → 2024-07-29 13:03 | Outpatient (CLI) | payer MEDICARE, MEDICAID, SELFPAY ==
[2024-07-29 19:37] LABS: Thyroid Stimulating Hormone 1.29 uIU/mL (0.47-4.68)
== END ==
PROVIDERS: PCP Family Medicine; Visit Provider Student in an Organized Health Care Education/Training Program
DX: E04.1 Nontoxic single thyroid nodule (principal)
CPT/HCPCS: 84439; 84443